=== PATIENT | female | born 1950 | race Caucasian/White ===

== ENCOUNTER 2017-12-08 12:54 | Day surgery (SDC) | payer OTHER ==
[~2017-12-08] VITALS: Ht 160 cm; Wt 88.5 kg
--- NOTE | ~2017-12-08 | OR ---
[facility] [address] [place], [place] [address] Draft DATE OF OPERATION: 12/08/2017 SURGEON: Karolina Ramsey MD PREOPERATIVE DIAGNOSES: Longstanding gastroesophageal reflux symptoms and known Major's esophagus without dysplasia (last upper endoscopy 2015). POSTOPERATIVE DIAGNOSES: 1. Minimal esophageal Major's at distal portion. 2. Marginal flap valve. 3. Antral gastritis with erosive changes. PROCEDURE PERFORMED: Esophagogastroduodenoscopy with biopsy. ANESTHESIA: Intravenous sedation with fentanyl 100 mcg and Versed 3 mg. INDICATIONS FOR PROCEDURE: This 66-year-old white woman was well-known to me from the past. She is a patient of Dr. Lopes. She has longstanding reflux symptoms and known Major's esophagus. Her last upper endoscopy was in 2015, at which time no signs of dysplasia related to the Major's esophagus was noted. She is having no dysphagia or reflux symptoms. She is taking Protonix. She is anticipating right thyroid lobectomy later this week for an 18 mm right lower pole nodule. Surveillance upper endoscopy was anticipated today regarding the Major's esophagus. The risks of bleeding, infection, and perforation were reviewed with her. She understands and wishes to proceed. FINDINGS: There is a very minimal Major's epithelium, essentially a small island just above the Z-line distally. Whether this represents a sign of progression of her Major's or not is uncertain. I will need to look at her previous photos to know that. The stomach itself showed erosive changes of the antral portion of the stomach, but no sign of ulcer proper. Duodenum was normal. CLOtest was negative. There is a poor flap valve, but no sign of large hiatal hernia. DESCRIPTION OF PROCEDURE: The patient was brought to the endoscopy suite, given topical Hurricaine spray PATIENT NAME: JOSE LUIS YOUSIF OPERATIVE REPORT DATE OF : 54 REPORT #: [id number] PHYSICIAN: KAROLINA RAMSEY MD PCP: DIPESH LOPES DO REPORT IS CONFIDENTIAL AND NOT TO BE RELEASED WITHOUT AUTHORIZATION [facility] [address] [place], [place] [address] Draft hypopharyngeal anesthesia and placed in lateral decubitus position. She was given intravenous sedation to the point of slurred speech and nystagmus. A bite block was placed. The Olympus video upper endoscope was passed in the hypopharynx, vocal cords appeared normal. The scope was advanced to the esophagus without problem; throughout its length, it was normal until the distal portion where a small island of what appeared to be glandular mucosa was noted just above the Z-line. This would indicate rather minimal Major's esophagus actually. The scope was then passed to the stomach, which was insufflated with air. Rugal folds were normal. The antrum had a surprising amount of inflammation with erosive changes. The pylorus was not distorted and was traversed with the scope allowing for good visualization of the duodenum. Duodenal biopsies were obtained. The scope was withdrawn and antral biopsies were then obtained of the antral gastritis with erosive change. The scope was withdrawn. Retroflexed view undertaken showed an attenuated flap valve, but no sign of large hiatal hernia. Scope was straightened, withdrawn, and biopsies were then taken of the island mucosa designated as Major's epithelium. There is an impressively small amount of Major's overall. The scope was further withdrawn to the mid esophagus, where biopsies were obtained as well. The scope was removed and the patient was taken to recovery room in good condition. CONCLUDING DIAGNOSES: Her Major's esophagus is rather minimal in extent. Biopsies likely will be normal as regard to dysplasia or not. She continues to take Protonix, which under the circumstances is reasonable. She is anticipating right thyroid lobectomy, possible total thyroidectomy this . We will proceed on that plan. MD RIVER Chapraro/NINAL /[id number] cc: Dipesh Lopes DO Copies: DIPESH LOPES DO PATIENT NAME: JOSE LUIS YOUSIF OPERATIVE REPORT DATE OF : 54 REPORT #: [id number] PHYSICIAN: KAROLINA RAMSEY MD PCP: DIPESH LOPES DO REPORT IS CONFIDENTIAL AND NOT TO BE RELEASED WITHOUT AUTHORIZATION [address] [place], [place] [address] Draft ~ PATIENT NAME: JOSE LUIS YOUSIF OPERATIVE REPORT DATE OF : 54 REPORT #: [id number] PHYSICIAN: KAROLINA RAMSEY MD PCP: DIPESH LOPES DO REPORT IS CONFIDENTIAL AND NOT TO BE RELEASED WITHOUT AUTHORIZATION
[~2017-12-08 12:54] MED LIST: ASPIR 8181 MG PO; CALCIUM600 MG PO; FISH OIL500 MG PO; MATZIM LA180 MG PO; METFORMIN HCL500 MG PO; MULTI VITAMIN1 EACH PO; OMEPRAZOLE20 MG PO; PAXIL40 MG PO; PROTONIX40 MG PO; VENTOLIN HFA18 GM IH
--- NOTE | 2017-12-08 14:37 | NUR ---
12/08/17 1437 Dara Higuera 1431 PT ARRIVED IN PACU SLEEPY WITH NO C/O'S. OXYGEN DECREASED TO 2L VIA NC WITH SATS 96%.
== END 2017-12-08 15:05 | disposition home or self-care (01) ==
LOC: OPS 12:54 → DS 12:54 → OPS 14:15
PROVIDERS: Surgery
PROC: 0DB78ZX Excision of Stomach, Pylorus, Via Natural or Artificial Opening Endoscopic, Diagnostic (ICD-10-PCS; 2017-12-08)
PROC: 0DB58ZX Excision of Esophagus, Via Natural or Artificial Opening Endoscopic, Diagnostic (ICD-10-PCS; principal; 2017-12-08 14:15)
DX: K22.70 Barrett's esophagus without dysplasia (principal); K29.50 Unspecified chronic gastritis without bleeding; K25.9 Gastric ulcer, unspecified as acute or chronic, without hemorrhage or perforation; K21.0 Gastro-esophageal reflux disease with esophagitis; E66.9 Obesity, unspecified; F32.9 Major depressive disorder, single episode, unspecified; J43.9 Emphysema, unspecified; Z85.3 Personal history of malignant neoplasm of breast; I47.1 Supraventricular tachycardia; Z88.5 Allergy status to narcotic agent; Z68.34 Body mass index [BMI] 34.0-34.9, adult; Z90.12 Acquired absence of left breast and nipple; Z98.890 Other specified postprocedural states
CPT/HCPCS: 99153; G0500; J2250; J3010; J7120

== ENCOUNTER 2017-12-11 05:45 | Observation (INO) | payer OTHER ==
[~2017-12-11] VITALS: Ht 160 cm; Wt 88.5 kg
[2017-12-11] MEDS ORDERED: BACTRIM DS TAB1 EACH PO (06:06)
[2017-12-12] MEDS ORDERED: IBUPROFEN600 MG PO (09:10)
[2017-12-12] MEDS ORDERED: OXYCODON-ACETA1 EAC2 PO (09:11)
[2017-12-12] MEDS ORDERED: MAPAP325 MG PO (09:11)
[2017-12-12] MEDS ORDERED: NICOTINE PATCH1 EAC1 TD (09:14)
--- NOTE | 2017-12-12 09:15 | OR ---
[facility] [address] [place], [place] [address] Signed DATE OF OPERATION: 12/11/2017 SURGEON: Karolina Ramsey MD PREOPERATIVE DIAGNOSIS: An 18 mm right lower pole thyroid nodule. POSTOPERATIVE DIAGNOSIS: An 18 mm right lower pole thyroid nodule with frozen pathology "follicular lesion uniform." PROCEDURE: Right thyroid lobectomy with isthmusectomy. ANESTHESIA: General endotracheal, Karolina Slade CRNA. INDICATION: This 66-year-old white woman is a patient Dr. Lopes and has been followed by me for a right thyroid lobe nodule, which was between 17 and 18 mm in size. There were three nodules, 2 considered between the upper and lower pole on the right side and a very small one on the left. I had recommended a fine-needle aspiration biopsy by image guidance in the past as the lesion is not strictly palpable, but she had declined. She was seen once again with the nodule unchanged essentially. She has no associated symptoms. She has no family history of thyroid cancer, nor history of radiation therapy or excessive risk for thyroid cancer in anyway. I have reviewed with her options of management including continued observation with imaging studies, image guided fine-needle aspiration biopsy and surgical excision including right thyroid lobectomy. She strongly prefers the latter for a variety of reasons. Understands the risks of bleeding, infection, and nerve injury, she wished to proceed. FINDINGS: The thyroid lobe was relatively small actually. The nodule itself took up the lower 1/4 of the gland and was a firm, but not hard nodule. The right thyroid lobe was excised fully. Visualization of the recurrent laryngeal nerve was noted showing no sign of injury to it. Two probable parathyroids were identified, none were resected with the specimen so far as could be told. The isthmus was excised as well. Frozen pathology by Dr. Shaun Dill showed a "follicular lesion" with uniform cells and no capsular Electronically Signed By: KAROLINA RAMSEY MD 12/12/17 0915 PATIENT NAME: JOSE LUIS YOUSIF OPERATIVE REPORT DATE OF : 54 REPORT #: [id number] PHYSICIAN: KAROLINA RAMSEY MD PCP: DIPESH LOPES DO REPORT IS CONFIDENTIAL AND NOT TO BE RELEASED WITHOUT AUTHORIZATION [facility] [address] [place], [place] [address] Signed invasion. Final pathology is pending. DESCRIPTION OF PROCEDURE: The patient was brought to the operating room, given a general endotracheal anesthetic. A William catheter was placed. Preoperative antibiotic Ancef was given. A shoulder roll was placed and mild neck extension undertaken and chastity longue position was maintained. The neck was prepared with a chlorhexidine solution and draped sterilely. A natural skin crease was marked and incision made between the medial heads of the sternocleidomastoid muscle. Dissection was carried through the dermis sharply. Subcutaneous tissue and platysmal layers were divided with electrocautery. Superior and inferior flaps were developed with blunt and electrocautery dissection. Two Gelpi retractors were placed and the avascular plane in the midline was incised and the strap muscles elevated down to the isthmus and trachea itself. Retraction of the strap muscles to the right side was undertaken using sharp dissection. The thyroid lobe was easily identified. Palpation revealed a nodule in the lower pole, which was rather firm, though not hard and with no associated calcifications. Using sharp and blunt dissection, the loose areolar tissue lateral, superior, and inferior to the gland was freed up. A small venous branches laterally were secured with 4-0 silk ties and divided. The superior pole was similarly mobilized and individual ligation of the blood vessels undertaken avoiding mass closure of the upper pole. A few clips were applied as well in areas that were not easily secured with ties. Similar dissection was taken in the inferior aspect. The thyroid was progressively dissected free rolling it from a lateral to medial position. Posterior thyroid elements were identified as was parathyroid glands. An extracapsular technique of Moses was used to free the gland. Minimal electrocautery was used to transect the ligament of Calloway rolling the thyroid completely to the midline to the avascular plane. The isthmus was divided with electrocautery, flushed with the left thyroid lobe. The nodule in question was secured with a silk tie and passed for frozen pathology. Examination of the retrotracheal structures showed the recurrent laryngeal nerve well out of the way and out of harms. A small amount of Patt was applied to the parenchyma of the thyroid (ligament of Calloway area). The wound was then closed by reapproximation with interrupted 2-0 Vicryl suture of the strap muscles and interrupted 2-0 Vicryl of the platysmal muscles. The skin was closed with running subcuticular 4-0 Vicryl. Steri-Strips were applied as a Mepilex silver sponge dressing. At this point, the frozen pathology report returned from Dr. Dill, which included only "follicular lesion" not specified as malignant or benign, but uniformity of the lesion was noted and no capsular invasion was seen on the specimen examined. The patient was allowed to emerge from anesthesia, extubated and transferred to recovery in good condition and suffered no complications. Sponge, needle, and instruments counts reported as correct x3. Electronically Signed By: KAROLINA RAMSEY MD 12/12/17 0915 PATIENT NAME: JOSE LUIS YOUSIFN OPERATIVE REPORT DATE OF : 54 REPORT #: [id number] PHYSICIAN: KAROLINA RAMSEY MD PCP: DIPESH LOPES DO REPORT IS CONFIDENTIAL AND NOT TO BE RELEASED WITHOUT AUTHORIZATION [address] [place], [place] [address] Signed MD RIVER Chaparro/DANNIE /[id number] cc: Dipesh Lopes DO Copies: DIPESH LOPES DO ~ Electronically Signed By: KAROLINA RAMSEY MD 12/12/17 0915 PATIENT NAME: JOSE LUIS YOUSIF OPERATIVE REPORT DATE OF : 54 REPORT #: [id number] PHYSICIAN: KAROLINA RAMSEY MD PCP: DIPESH LOPES DO REPORT IS CONFIDENTIAL AND NOT TO BE RELEASED WITHOUT AUTHORIZATION
== END 2017-12-12 10:40 | disposition home or self-care (01) ==
LOC: DS 05:45 → MS 11:25
PROVIDERS: ADMIT Surgery
PROC: 0GTH0ZZ Resection of Right Thyroid Gland Lobe, Open Approach (ICD-10-PCS; principal; 2017-12-11 06:45)
DX: D34 Benign neoplasm of thyroid gland (principal); E66.9 Obesity, unspecified; F17.210 Nicotine dependence, cigarettes, uncomplicated; J44.9 Chronic obstructive pulmonary disease, unspecified; F32.9 Major depressive disorder, single episode, unspecified; K21.9 Gastro-esophageal reflux disease without esophagitis; M54.5 Low back pain; G89.29 Other chronic pain; F41.9 Anxiety disorder, unspecified; Z85.3 Personal history of malignant neoplasm of breast; Z68.34 Body mass index [BMI] 34.0-34.9, adult; Z79.84 Long term (current) use of oral hypoglycemic drugs; Z79.82 Long term (current) use of aspirin; Z79.899 Other long term (current) drug therapy
CPT/HCPCS: 00320; 94762; 96374; 99406; G0378; J0330; J0690; J1100; J1885; J2250; J2405; J2704; J2765; J3010; J7120

== ENCOUNTER 2019-09-12 21:32 | Emergency (ER) | payer MEDICARE, OTHER ==
[~2019-09-12] VITALS: Ht 160 cm; Wt 88.5 kg
[~2019-09-12 21:32] MED LIST changes: +BACTRIM DS TAB1 EACH PO; +IBUPROFEN600 MG PO; +MAPAP325 MG PO; +NICOTINE PATCH1 EAC1 TD; +OXYCODON-ACETA1 EAC2 PO
== END 2019-09-13 00:21 | disposition home or self-care (01) ==
LOC: ED 21:32
DX: S83.91XA Sprain of unspecified site of right knee, initial encounter (principal); F17.200 Nicotine dependence, unspecified, uncomplicated; Z90.49 Acquired absence of other specified parts of digestive tract; Z90.710 Acquired absence of both cervix and uterus; Z88.5 Allergy status to narcotic agent; Z79.899 Other long term (current) drug therapy; Z79.82 Long term (current) use of aspirin; Z23 Encounter for immunization; W18.40XA Slipping, tripping and stumbling without falling, unspecified, initial encounter
CPT/HCPCS: 73560; 90471; 90715; 99283-25

== ENCOUNTER 2020-12-29 07:55 | Day surgery (SDC) | payer MEDICARE, OTHER ==
[~2020-12-29] VITALS: Ht 172.7 cm; Wt 88.5 kg
--- NOTE | 2020-12-29 10:31 | NUR ---
12/29/20 1031 Chaya Santana 1027: PT ARRIVES TO PACU DROWSY. SHE EASILY WAKES UP TO STIMULI.
--- NOTE | 2021-01-01 12:40 | PATH ---
[facility] [address] [place], [place] [address] Signed SPECIMEN(S): A DUODENAL BIOPSY SPECIMEN(S): B LOWER ESOPHAGEAL BIOPSY SPECIMEN(S): C RECTUM SPECIMEN SOURCE: A. DUODENAL BIOPSY B. LOWER ESOPHAGEAL BIOPSY C. RECTUM CLINICAL HISTORY: Esophagogastroduodenoscopy/colonoscopy. GERD/Major's/diarrhea. Post: 1) minimal Major's esophagus; 2) normal appearing colon. MICROSCOPIC DESCRIPTION: Histologic sections of all submitted blocks are examined by light microscopy. These findings, together with the gross examination, support the pathologic diagnosis. FINAL PATHOLOGIC DIAGNOSIS: A. Duodenum, biopsy: - Scant fragment of denuded small-bowel mucosa with no significant pathologic changes. B. Esophagus, lower, biopsy: - Esophageal squamous mucosa with reactive epithelial changes. - No glandular mucosa present. C. Rectum, biopsy: - Colonic mucosa with no significant pathologic changes. BRP:[facility]:C2NR GROSS DESCRIPTION: Three specimens are received in three containers, labeled "CE." A. The specimen, labeled "CE, duodenum biopsy," is received in formalin and consists of one mcmahon soft tissue fragment that measures less than 0.1 cm in greatest dimension. The specimen is entirely submitted in cassette (A1). B. The specimen, labeled "CE, distal esophagus," is received in formalin and consists of one mcmahon soft tissue fragment that measures 0.1 cm in greatest dimension. The specimen is entirely submitted in cassette (B1). C. The specimen, labeled "CE, rectum biopsy," is received in formalin and consists of two mcmahon soft tissue fragments that measure 0.1-0.2 cm in greatest dimension. The specimen is entirely submitted PATIENT NAME: JOSE LUIS YOUSIF PATHOLOGY DATE OF : 54 REPORT #: [id number] PHYSICIAN: LESLIE ECHEVARRIA PCP: VARUN SONG PA-C REPORT IS CONFIDENTIAL AND NOT TO BE RELEASED WITHOUT AUTHORIZATION [facility] [address] [place], [place] [address] Signed in cassette (C1). JS (under the direct supervision of a pathologist) The Gross Description was prepared using a voice recognition system. The report was reviewed for accuracy; however, sound-alike word errors, addition and/or deletions may occur. If there is any question about this report, please contact Client Services. PERFORMING LABORATORY: The technical component was performed by [facility], [address] [place] [id number] (Film Printer: Ginette Hall MD; CLIA# [id number]). [facility], [address] [place] [place] [address]. Diagnostician: Mamadou Callaway MD Pathologist Electronically Signed 01/01/2021 Copies: ~ PATIENT NAME: JOSE LUIS YOUSIF PATHOLOGY DATE OF : 54 REPORT #: [id number] PHYSICIAN: LESLIE ECHEVARRIA PCP: VARUN SONG PA-C REPORT IS CONFIDENTIAL AND NOT TO BE RELEASED WITHOUT AUTHORIZATION
--- NOTE | 2021-01-01 18:30 | OR ---
[facility] [address] [place], [place] [address] Signed DATE OF OPERATION: 12/29/2020 SURGEON: Karolina Ramsey MD PREOPERATIVE DIAGNOSES: 1. History of Major's esophagus, stricture and reflux. 2. Diarrhea, unknown etiology. POSTOPERATIVE DIAGNOSES: 1. Minimal distal Major's esophagus, minimal duodenitis. 2. Normal-appearing colon without specific intubation of the cecum. PROCEDURES: 1. Esophagogastroduodenoscopy with biopsy. 2. Total colonoscopy to cecum with biopsies. ANESTHESIA: Intravenous sedation, fentanyl 200 mcg, and Versed 8 mg. INDICATION: This 70-year-old white woman is a patient of Varun Garcia, well known to me from the past. She is known to have reflux disease and has undergone upper endoscopy and dilation by me for dysphagia in 2011. Her last upper endoscopy was in 2017. She is noted to have minimal amounts of Major's esophagus. Her last colonoscopy was in 2013. She now has diarrhea. Her reflux type symptoms have resolved. She has no dysphagia. She is admitted to undergo upper endoscopy and colonoscopy. She understands the risks of bleeding, infection, and perforation. FINDINGS: Upper endoscopy did show minimal islands of Major's esophagus in the distal esophagus. There was no evidence of stricture. She has a reasonably good flap valve. The stomach and duodenum were normal. CLOtest was negative. Colonoscopy showed a good prep. Passage to fully intubate the cecum was not possible based on the patient discomfort, but the colon that was visualized showed no evidence of obvious colitis or other lesion. Biopsies were taken to assess for occult colitis. DESCRIPTION OF PROCEDURE: The patient was brought to the endoscopy suite and placed in lateral decubitus position, given intravenous sedation to the point of slurred speech and nystagmus. Lidocaine Electronically Signed By: KAROLINA RAMSEY MD 01/01/21 1830 PATIENT NAME: JOSE LUIS YOUSIF OPERATIVE REPORT DATE OF : 54 REPORT #: [id number] PHYSICIAN: KAROLINA RAMSEY MD PCP: VARUN GARCIA PA-C REPORT IS CONFIDENTIAL AND NOT TO BE RELEASED WITHOUT AUTHORIZATION [facility] [address] [place], [place] [address] Signed hypopharyngeal topical anesthesia had been administered. A bite block was placed. An Olympus video upper endoscope was passed in the hypopharynx. The vocal cords were normal. Scope was advanced to the esophagus throughout its length, it appeared normal except in the distal portion, where there were few small islands of Major's epithelium. The scope was passed to the stomach, which was insufflated with air. Rugal folds were normal. There was mild chronic antral gastritis, but not much and certainly no ulcerations. Pylorus was normal, scope was passed through into the duodenum, which was remarkable only for minimal duodenitis of the bulb. Biopsies were obtained in this area and biopsies additionally obtained of the stomach for CLOtest. Inadequate specimens were noted for antral biopsy. Proper retroflexed view showed a reasonably good flap valve. No sign of large hiatal hernia. Scope was straightened, withdrawn, and multiple biopsies taken from the distal esophagus. The minimal specimens were obtained. It was later found that an alligator type forcep had been substituted for a conventional cup biopsy, plus accounting for inadequate biopsies unfortunately. The scope was withdrawn and a few concentric rings were noted in the mid esophagus. Biopsies were obtained there with minimal specimens once again for the same reason. The scope was removed. Plans were made for colonoscopy. Digital rectal examination showed no abnormality. An Olympus video colonoscope was passed in the rectum and manipulated throughout the colon, showing a very good bowel prep, but impressively redundant colon. Scope was advanced beyond hepatic flexure to the right colon, but despite efforts made to intubation the cecum cannot be certain. The biopsy forceps was used to elevate the mucosa and likely was the cecum showing no clear evidence of abnormality there. The scope was then withdrawn and the patient could tolerate no more manipulation to account for intubation of the cecum despite abdominal wall stabilization and additional sedation. Careful withdrawal of scope showed no sign of abnormality. Biopsies were taken of the rectum to assess for occult colitis. The scope was removed after retroflexed view was normal as well the scope. The patient was then taken to recovery room in good condition having suffered no known complications. CONCLUSION DIAGNOSIS: Upper endoscopy showing mild chronic duodenitis. CLOtest, which was negative at 30 minutes post procedure and minimal islands of Major's esophagus without evidence of stricture or other abnormality. On colonoscopy, it appeared to have normal mucosa. Biopsies were obtained to assess for occult colitis. PLAN: We will initiate Metamucil as an assist to her diarrhea type problem. We will see her Electronically Signed By: KAROLINA RAMSEY MD 01/01/21 4210 PATIENT NAME: JOSE LUIS YOUSIF OPERATIVE REPORT DATE OF : 54 REPORT #: [id number] PHYSICIAN: KAROLINA RAMSEY MD PCP: VARUN GARCIA PA-C REPORT IS CONFIDENTIAL AND NOT TO BE RELEASED WITHOUT AUTHORIZATION [address] [address] Signed back in a month or so and assess her progress and review her pathology reports as available. If Metamucil is ineffective in assistance with her diarrhea problem, other interventions will be undertaken, possibly include Questran or even a motility agent such as loperamide. MD RIVER Chaparro/DANNIE /[id number] cc: SHARON Vasquez Copies: ~ Electronically Signed By: KAROLINA RAMSEY MD 01/01/21 1830 PATIENT NAME: JOSE LUIS YOUSIF OPERATIVE REPORT DATE OF : 54 REPORT #: [id number] PHYSICIAN: KAROLINA RAMSEY MD PCP: VARUN GRACIA PA-C REPORT IS CONFIDENTIAL AND NOT TO BE RELEASED WITHOUT AUTHORIZATION
== END 2020-12-29 11:15 | disposition home or self-care (01) ==
LOC: DS 07:55 → OPS 07:55 → DS 09:25 → OPS 09:25 → DS 09:30 → OPS 09:30
PROVIDERS: ATTEND Surgery
PROC: 0DBP8ZX Excision of Rectum, Via Natural or Artificial Opening Endoscopic, Diagnostic (ICD-10-PCS; 2020-12-29)
PROC: 0DB98ZX Excision of Duodenum, Via Natural or Artificial Opening Endoscopic, Diagnostic (ICD-10-PCS; principal; 2020-12-29 09:25)
PROC: 0DB38ZX Excision of Lower Esophagus, Via Natural or Artificial Opening Endoscopic, Diagnostic (ICD-10-PCS; 2020-12-29 09:25)
DX: K22.70 Barrett's esophagus without dysplasia (principal); K29.80 Duodenitis without bleeding; R19.7 Diarrhea, unspecified; J43.9 Emphysema, unspecified; F17.210 Nicotine dependence, cigarettes, uncomplicated; F32.9 Major depressive disorder, single episode, unspecified; K21.9 Gastro-esophageal reflux disease without esophagitis; E66.9 Obesity, unspecified; D34 Benign neoplasm of thyroid gland; Z68.34 Body mass index [BMI] 34.0-34.9, adult; Z88.5 Allergy status to narcotic agent; Z85.3 Personal history of malignant neoplasm of breast
CPT/HCPCS: 88305; 99153; G0500; J2250; J7121

== ENCOUNTER 2022-01-30 23:08 | Emergency (ER) | payer MEDICARE, OTHER ==
[~2022-01-30] VITALS: Ht 160 cm; Wt 86.9 kg
[2022-01-30] MEDS ORDERED: OMEPRAZOLE20 MG PO (23:32)
[2022-01-31] MEDS ORDERED: PREDNISONE20 MG PO (01:24)
[2022-01-31] MEDS ORDERED: AMOX TR-K CLV1 EAC1 PO (01:24)
== END 2022-01-31 02:00 | disposition home or self-care (01) ==
LOC: ED 23:08
DX: S60.562A Insect bite (nonvenomous) of left hand, initial encounter (principal); L03.114 Cellulitis of left upper limb; L02.512 Cutaneous abscess of left hand; R73.03 Prediabetes; F17.200 Nicotine dependence, unspecified, uncomplicated; Z88.5 Allergy status to narcotic agent; Z79.899 Other long term (current) drug therapy; Z79.84 Long term (current) use of oral hypoglycemic drugs; Z79.82 Long term (current) use of aspirin; W57.XXXA Bitten or stung by nonvenomous insect and other nonvenomous arthropods, initial encounter
CPT/HCPCS: 36415; 73130; 80053; 83605; 84550; 85025; 96361; 96365; 96375; 99283-25; J0696; J1885; J2920; J7030

== ENCOUNTER 2025-02-03 07:15 | Day surgery (SDC) | payer MEDICARE ==
[~2025-02-03] VITALS: Ht 160 cm; Wt 88.6 kg
[~2025-02-03 07:15] MED LIST changes: +AMOX TR-K CLV1 EAC1 PO; +IBLOOD GLUCOSE TEST STRIP 1 EA TEST VI PRN; +LACTATED RINGER'S 1,000 ML IV SCH; +LIDOCAINE HCL 1% 5 ML SDV INJ ONE; +LIDOCAINE HCL 4% 50 ML BTL TOP SCH; +MIDAZOLAM HCL 5 MG/5 ML VIAL IV PRN; +PREDNISONE20 MG PO; -VENTOLIN HFA18 GM IH; +VENTOLIN HFA18 GM INH; +fentaNYL citrate 100 MCG/2 ML VIAL IV PRN
--- NOTE | 2025-02-03 07:24 | NUR ---
PT NOT AVAILABLE FOR VISIT. PROVIDED PRAYER.
[2025-02-03 07:32] VITALS: BP 182/89
[2025-02-03] MEDS ORDERED: fentaNYL citrate 100 MCG/2 ML VIAL ONE (09:29)
[2025-02-03] MEDS ORDERED: MIDAZOLAM HCL 5 MG/5 ML VIAL ONE (09:30)
--- NOTE | 2025-02-03 10:03 | NUR ---
02/03/25 Otilio3 Xochitl Ignacio 4488-PATIENT ARRIVED TO PACU ON 2L NC RR EVEN. PATIENT LAYING LEFT LATERAL ABDOMEN SOFT. IVF INFUSING. PATIENT REACTIVE TO VERBAL STIMULI VERY DROWSY ORIENTED TO PACU. DOZES BACK TO SLEEP. SR HR 70'S.
[2025-02-03 11:10] VITALS: BP 161/81
--- NOTE | 2025-02-03 11:35 | NUR ---
1110-PT ARRIVED BACK TO ON RA, AROUSABLE TO VERBAL STIMULI. PT NOTED TO BE SIPPING ON ICE WATER. REPORT RECEIVED FROM FROM LEAK DETECTOR. VS TAKEN. IV SITE ASSESSED. IV SL'D. PT DENIES PAIN OR NAUSEA WHEN ASKED. DC INSTRUCTIONS REVIEWED WITH PT. PT PROVIDED WITH WRITTEN DC INSTRUCTIONS WELL. PT VERBALIZED UNDERSTANDING. ALL QUESTIONS ANSWERED. CALL LIGHT AND PERSONAL BELONGINGS WITHIN REACH. BED IN LOW POSITION, WHEELS LOCKED, BILAT RAILS IN PLACE. 1130-PT APPEARS MORE ALERT AND IS ANSWERING QUESTIONS APPROPRIATELY. [facility] WAS CALLED FOR RIDE HOME. ASSISTED PT IN DRESSING FOR DISCHARGE. 1135-IV REMOVED. TIP APPEARS INTACT. PRESSURE DRSG APPLIED WITH GAUZE AND COBAN.
--- NOTE | 2025-02-03 14:25 | NUR ---
PT DISCHARGED FROM DS VIA WC TO PASSENGER SIDE OF [employer]S VEHICLE. ALL PERSONAL BELONGINGS TAKEN WITH PT.
--- NOTE | 2025-02-04 14:32 | OR ---
[facility] [address], [place] [address] Signed DATE OF OPERATION: 02/03/2025 SURGEON: Karolina Ramsey MD PREOPERATIVE DIAGNOSIS: Longstanding gastroesophageal reflux with hiatal hernia and prior Major's. POSTOPERATIVE DIAGNOSIS: Small hiatal hernia and poor flap valve and no clinical evidence of Major's esophagus. PROCEDURE: Esophagogastroduodenoscopy with biopsy. ANESTHESIA: Intravenous sedation, fentanyl 100 mcg, and Versed 5 mg. INDICATION: This 74-year-old white woman is a patient Dr. Savana Olivier. She is well known to me from the past. , she has ongoing treatment with PPI medication, omeprazole for gastroesophageal reflux symptoms. In the past, she has been thought to have Major's esophagus based on clinical evidence, though biopsies have been equivocal. She has no dysphagia or other symptoms particularly, but given the prior history of Major's esophagus and the last upper endoscopy having been performed in 2020, I have recommended surveillance upper endoscopy. Notably, she has no family history of esophageal cancer. She does smoke 1/2 pack of cigarettes a day, though she has been off cigarettes in the past for lengthy periods. She does drink alcohol on an episodic basis. She has no associated hematemesis or dysphagia currently. Her reflux symptoms are generally controlled with PPI medication and episodic use of Tums. She understands the risk of upper endoscopy including, but not limited to bleeding, infection, and perforation and wished to proceed. FINDINGS: There is no clear evidence of Major's esophagus on this evaluation. She does have a poor flap valve consistent with hiatal hernia. The stomach and duodenum were normal. CLOtest was negative. DESCRIPTION OF PROCEDURE: The patient was brought to the endoscopy suite and placed in lateral decubitus position, given intravenous sedation to the point of slurred speech and nystagmus with full cardiopulmonary monitoring. Preoperative administration of lidocaine hypopharyngeal Electronically Signed By: KAROLINA RAMSEY MD 02/04/25 1432 PATIENT NAME: JOSE LUIS YOUSIF OPERATIVE REPORT DATE OF : 54 REPORT #: [id number] PHYSICIAN: KAROLINA RAMSEY MD PCP: SAVANA OILVIER MD REPORT IS CONFIDENTIAL AND NOT TO BE RELEASED WITHOUT AUTHORIZATION [facility] [address], [place] [address] Signed anesthesia had been accomplished. A bite block was placed. The Olympus video upper endoscope was passed in the hypopharynx. The vocal cords appeared normal. Scope was advanced to the esophagus and throughout its length it was normal. Careful inspection of the lower part did not show typical Major's epithelium by any means. The scope was then advanced into the stomach, which was insufflated with air. Rugal folds were normal as was the antrum and pylorus. The scope was passed through the pylorus into the duodenum. Duodenum was normal. Biopsies were taken distally and proximally to assess for celiac disease. The scope was withdrawn. A biopsy was then taken of the antrum for both JUANPABLO and pathologic testing. There may be mild chronic inflammation of the stomach, but no sign of ulcer or erosion. Retroflexed view was undertaken initially showing a reasonable flap valve with withdrawal of the scope in the J position. The flap valve could easily no doubt account for her reflux symptoms. Scope was straightened, withdrawn, and careful inspection with narrow band imaging and conventional imaging showed no clear evidence of Major's epithelium. Multiple biopsies were taken nevertheless. Scope was then withdrawn and biopsies taken of the midesophagus also. The scope was withdrawn, removed. The patient was taken to the recovery room in good condition. CONCLUDING DIAGNOSIS: No evidence of Major's epithelium on this evaluation, still with poor flap valve and clinical reflux symptoms, well managed by PPI. PLAN: Recommend continued use of PPI medication. She will return to the ongoing care of Dr. Olivier. MD RIVER Chaparro/NINAL /[id number] cc: Dr. Olivier Electronically Signed By: KAROLINA RAMSEY MD 02/04/25 1432 PATIENT NAME: JOSE LUIS YOUSIF OPERATIVE REPORT DATE OF : 54 REPORT #: [id number] PHYSICIAN: KAROLINA RAMSEY MD PCP: SAVANA OLIVIER MD REPORT IS CONFIDENTIAL AND NOT TO BE RELEASED WITHOUT AUTHORIZATION [facility] [address] [place] [address] [place], [place] [address] Signed Copies: ~ Electronically Signed By: KAROLINA RAMSEY MD 02/04/25 1432 PATIENT NAME: JOSE LUIS YOUSIF PERRI OPERATIVE REPORT DATE OF : 54 REPORT #: [id number] PHYSICIAN: KAROLINA RAMSEY MD PCP: SAVANA OLIVIER MD REPORT IS CONFIDENTIAL AND NOT TO BE RELEASED WITHOUT AUTHORIZATION
--- NOTE | 2025-02-08 12:22 | PATH ---
[facility] [address], [place] [address] Signed SPECIMEN(S): A DUODENAL BIOPSY SPECIMEN(S): B ANTRUM BIOPSY SPECIMEN(S): C DISTAL ESOPHAGEAL BIOPSY SPECIMEN(S): D MIDDLE ESOPHAGEAL BIOPSY SPECIMEN SOURCE: A. DUODENAL BIOPSY B. ANTRUM BIOPSY C. DISTAL ESOPHAGEAL BIOPSY D. MIDDLE ESOPHAGEAL BIOPSY CLINICAL HISTORY: History of GERD/abdominal pain/dysphagia/Major's esophagus. Hiatal hernia. A-D) biopsy FINAL PATHOLOGIC DIAGNOSIS: A. Duodenal biopsy: - Benign duodenal mucosa, negative for specific diagnostic abnormality. B. Antrum biopsy: - Benign gastric mucosa with focal slight chronic inflammation. - Negative for evidence of Helicobacter organisms on routine HE stained sections. C. Distal esophageal biopsy: - Benign esophageal epithelium, negative for increased epithelial eosinophils. - Negative for glandular mucosa. D. Middle esophageal biopsy: - Benign esophageal epithelium, negative for increased epithelial eosinophils. - Negative for glandular mucosa. JVR:derrick MICROSCOPIC EXAMINATION: Histologic sections of all submitted blocks are examined by light microscopy. These findings, together with the gross examination, support the pathologic diagnosis. GROSS DESCRIPTION: A. The specimen, labeled and designated "Rafael duodenal biopsy," is received in formalin and consists of one mcmahon soft tissue fragment, 0.4 cm. Entirely submitted in (A1). B. The specimen, labeled and designated "Rafael, antrum biopsy," is received in formalin and consists of two mcmahon soft tissue fragments, ranging from 0.4-0.5 PATIENT NAME: RAFAELJOSE LUIS PERRI PATHOLOGY DATE OF : 54 REPORT #: [id number] PHYSICIAN: LESLIE ECHEVARRIA PCP: CRISELDA OLIVIER MD REPORT IS CONFIDENTIAL AND NOT TO BE RELEASED WITHOUT AUTHORIZATION [facility] [address], [place] [address] Signed cm. Entirely submitted in (B1). C. The specimen, labeled and designated "Elder, distal esophageal biopsy," is received in formalin and consists of three mcmahon soft tissue fragments, ranging from 0.3-0.5 cm. Entirely submitted in (C1). D. The specimen, labeled and designated "Elder, middle esophageal biopsy.," is received in formalin and consists of two mcmahon soft tissue fragments, ranging from 0.5-0.6 cm. Entirely submitted in (D1). AB (under the direct supervision of a pathologist) The Gross Description was prepared using a voice recognition system. The report was reviewed for accuracy; however, sound-alike word errors, addition and/or deletions may occur. If there is any question about this report, please contact Client Services. PERFORMING LABORATORY: Technical component was performed by [facility], [address] [place] [id number] (CLIA# [id number]). Professional interpretation was performed by [facility], [address] [place] [id number] (CLIA#: [id number]). Diagnostician: Portillo Haque MD Pathologist Electronically Signed 02/08/2025 Copies: ~ PATIENT NAME: JOSE LUIS YOUSIF PATHOLOGY DATE OF : 54 REPORT #: [id number] PHYSICIAN: LESLIE ECHEVARRIA PCP: CRISELDA OLIVIER MD REPORT IS CONFIDENTIAL AND NOT TO BE RELEASED WITHOUT AUTHORIZATION
== END 2025-02-03 11:40 | disposition home or self-care (01) ==
LOC: OPS 07:15 → DS 07:16 → OPS 09:00 → DS 09:00 → OPS 11:40
PROVIDERS: ATTEND Surgery
PROC: 0DB68ZX Excision of Stomach, Via Natural or Artificial Opening Endoscopic, Diagnostic (ICD-10-PCS; 2025-02-03)
PROC: 0DB58ZX Excision of Esophagus, Via Natural or Artificial Opening Endoscopic, Diagnostic (ICD-10-PCS; 2025-02-03)
PROC: 0DB98ZX Excision of Duodenum, Via Natural or Artificial Opening Endoscopic, Diagnostic (ICD-10-PCS; principal; 2025-02-03 09:00)
DX: K21.9 Gastro-esophageal reflux disease without esophagitis (principal); K44.9 Diaphragmatic hernia without obstruction or gangrene; K22.89 Other specified disease of esophagus; K29.50 Unspecified chronic gastritis without bleeding; J43.9 Emphysema, unspecified; E89.0 Postprocedural hypothyroidism; F10.90 Alcohol use, unspecified, uncomplicated; F17.210 Nicotine dependence, cigarettes, uncomplicated; E66.9 Obesity, unspecified; Z68.34 Body mass index [BMI] 34.0-34.9, adult; Z79.899 Other long term (current) drug therapy; Z88.5 Allergy status to narcotic agent
CPT/HCPCS: 88305; G0500; J2250; J3010; J7121